=== PATIENT | female | born 1940 | race Two or more races ===

== ENCOUNTER 2018-06-15 16:30 | Inpatient (IN) | payer MEDICARE ==
[~2018-06-15] VITALS: Ht 157.5 cm; Wt 44.0 kg
[2018-06-15] VITALS: BP 120/59
[~2018-06-15 16:30] MED LIST: HYDR-3974 PO; METO50TA7 PO
--- NOTE | 2018-06-15 16:43 | NUR ---
patient cherry from home, due to ground level fall, lac at the back of the head, -KO, caregiver left PT for 2 hours and came back found PT on the floor. on 02 @ 2lpm via NC, connected to the monitor and pulse ox, kept comfortable, will continue to monitor accordingly.
[2018-06-15] MEDS ORDERED: ONDANSETRON HCL/PF 4 MG/2 ML VIAL ONE (16:57)
[2018-06-15] MEDS ORDERED: IV NS 0.9% 500 ML BAG IV ONE (17:00)
[2018-06-15] MEDS ORDERED: ONDANSETRON HCL/PF 4 MG/2 ML VIAL IVP ONE (17:00)
--- NOTE | 2018-06-15 17:06 | NUR ---
CALLED HOUSE SUP FOR BED JARROD
[2018-06-15 17:07] LABS: BASOPHILS % (AUTO) 0.1 % (0.0-2.0); EOSINOPHILS % (AUTO) 0.1 % (0.0-6.0); HEMATOCRIT 41 % (33-45); HEMOGLOBIN 13.6 g/dL (11.5-14.8); LYMPHOCYTES # (AUTO) 0.4 /CMM (0.8-4.8); LYMPHOCYTES % (AUTO) 2.9 % (20.0-44.0); MEAN CORPUSCULAR HGB CONC 33 g/dl (31.0-36.0); MEAN CORPUSCULAR VOLUME 93 fL (82-100); MONOCYTES # (AUTO) 0.5 /CMM (0.1-1.30); MONOCYTES % (AUTO) 3.4 % (2.0-12.0); NEUTROPHILS # (AUTO) 13.1 /CMM (1.8-8.9); NEUTROPHILS % (AUTO) 93.5 % (43.0-81.0); PLATELET COUNT (AUTO) 286 /CMM (150-450); RED BLOOD CELL COUNT(AUTO) 4.38 MIL/uL (4.0-5.2)
[2018-06-15 17:16] LABS: CALCIUM, SERUM 9.5 mg/dL (8.5-10.1); CARBON DIOXIDE 26 mmol/L (21-32); CHLORIDE 105 mmol/L (98-107); CREATININE 0.9 mg/dL (0.6-1.3); GLUCOSE 120 mg/dL (74-106); POTASSIUM 4.1 mmol/L (3.5-5.1); SODIUM SERUM 142 mmol/L (136-145); UREA NITROGEN, BLOOD 20 mg/dL (7-18)
[2018-06-15 17:22] LABS: ALANINE AMINOTRANSFERASE 22 U/L (12-78); ALBUMIN 3.3 g/dL (3.4-5.0); ALKALINE PHOSPHATASE 103 U/L (46-116); ASPARTATE AMINOTRANSFERASE 22 U/L (15-37); BILIRUBIN,DIRECT 0.1 mg/dL (0.0-0.2); BILIRUBIN,TOTAL 0.7 mg/dL (0.2-1.0); TOTAL PROTEIN, SERUM 6.6 g/dL (6.4-8.2)
--- NOTE | 2018-06-15 17:30 | NUR ---
patient wheeled to ct scan
--- NOTE | 2018-06-15 17:40 | NUR ---
patient came back from ct.
[2018-06-15 17:43] LABS: B-TYPE NATRIURETIC PEPTIDE 136 PG/ML (0-125)
--- NOTE | 2018-06-15 17:54 | NUR ---
PAGED DORINDA MCCARTHY
[2018-06-15] MEDS ORDERED: IV NS 0.9% 1,000 ML BAG IV ONE (18:00)
[2018-06-15] MEDS ORDERED: MULT1TAB73 PO (18:06)
--- NOTE | 2018-06-15 18:08 | NUR ---
urine collected and sent to lab.
--- NOTE | 2018-06-15 18:10 | NUR ---
JARROD BED 118-2
--- NOTE | 2018-06-15 18:16 | NUR ---
dannie MOLDER SWEEP at bedside for eval.
--- NOTE | 2018-06-15 18:21 | NUR ---
report given to Pamela CALVERT for jean.
[2018-06-15 18:24] LABS: APPEARANCE,URINE Clear (CLEAR); BILIRUBIN,URINE Negative (NEGATIVE); BLOOD, URINE Negative Ery/uL (NEGATIVE); COLOR,URINE Yellow (YELLOW); KETONES,URINE Trace (NEGATIVE); LEUKOCYTE ESTERASE ,URINE Negative (NEGATIVE); NITRITE, URINE Negative (NEGATIVE); PH,URINE 6.5 (5.0-8.0); PROTEIN,URINE 30 mg/dl (NEGATIVE); UGLUCOSE Negative (NEGATIVE); UROBILINOGEN,URINE 0.2 EU/dL (0.2)
[2018-06-15] MEDS ORDERED: AZITHROMYCIN 500 MG in IV D5W 250 ML IV ONE (18:30)
[2018-06-15] MEDS ORDERED: CEFTRIAXONE 1 G in IV D5W 50 ML IV ONE (18:30)
[2018-06-15 19:17] VITALS: BP 136/89
--- NOTE | 2018-06-15 19:20 | NUR ---
RN ADMITTING NOTES RECEIVED PT FROM ER VIA [facility], ACCOMPANIED BY CAREGIVER. PT IS A/OX3. ON 4L O2 VIA NC, NO SOB NOTED. DENIES PAIN AT THIS TIME. LFA G18 HEPLOCK PATENT, C/D/I. PHYSICAL ASSESSMENT AND VS TAKEN. PLACED ON TELE, SR ON TELE. ORIENTED TO ROOM AND USE OF CALL LIGHT. SAFETY MEASURES AND FALL PRECAUTION IN PLACED. CALL LIGHT WITHIN REACH. WILL CONT TO MONITOR
--- NOTE | 2018-06-15 19:26 | NUR ---
wheeled patient to JARROD in no apparent distress noted.
[2018-06-15] MEDS ORDERED: ONDANSETRON HCL/PF 4 MG/2 ML VIAL IVP PRN (19:30)
[2018-06-15] MEDS ORDERED: FEE PK DOSING 1 MIN EA MC ONE (19:36)
[2018-06-15 19:54] LABS: BACTERIA,URINE Rare /HPF (None Seen); RBC,URINE 0-2 /HPF (0-2); SQUAMOUS EPITHELIAL CELL,UR Few /HPF (None Seen); WBC,URINE 0-2 /HPF (0-3)
[2018-06-15 19:55] LABS: MUCUS,URINE Few /LPF (None Seen); URINE AMORPHOUS URATE Few /HPF (None Seen)
[2018-06-15 20:00] VITALS: BP 136/89
[2018-06-15] MEDS: VANCOMYCIN 0.75 GM in IV D5W 250 ML IV SCH (20:12)
[2018-06-15] MEDS: PIPERACILLIN /TAZOBACTAM 2.25 G in IV D5W 50 ML IV SCH (21:53)
[2018-06-16] VITALS: BP 120/59
--- NOTE | 2018-06-16 01:15 | NUR ---
RN NOTES RECEIVED CALL FROM LAB. PT'S LACTIC ACID=2.1. PAGED COMMERCIAL LINES MANAGER MARYJO PORTER, AWAITING FOR CALL BACK
--- NOTE | 2018-06-16 01:56 | NUR ---
RN NOTES RECEIVED CALL BACK FROM CADEN MALDONADO RE: LACTIC ACID OF 2.1, NO NEW ORDERS MADE BY HEALTH DIRECTOR
[2018-06-16] MEDS: PIPERACILLIN /TAZOBACTAM 2.25 G in IV D5W 50 ML IV SCH ×4 (02:33→21:20)
[2018-06-16 04:00] VITALS: BP 105/96
[2018-06-16 06:43] LABS: ALANINE AMINOTRANSFERASE 18 U/L (12-78); ALBUMIN 2.8 g/dL (3.4-5.0); ALKALINE PHOSPHATASE 79 U/L (46-116); ASPARTATE AMINOTRANSFERASE 24 U/L (15-37); BILIRUBIN,TOTAL 1.2 mg/dL (0.2-1.0); CARBON DIOXIDE 29 mmol/L (21-32); CHLORIDE 102 mmol/L (98-107); CREATININE 0.8 mg/dL (0.6-1.3); GLUCOSE 106 mg/dL (74-106); PHOSPHORUS 4.3 mg/dL (2.5-4.9); POTASSIUM 4.4 mmol/L (3.5-5.1); SODIUM SERUM 138 mmol/L (136-145); UREA NITROGEN, BLOOD 21 mg/dL (7-18)
[2018-06-16 06:45] LABS: BASOPHILS % (AUTO) 0.3 % (0.0-2.0); EOSINOPHILS % (AUTO) 0.1 % (0.0-6.0); HEMATOCRIT 36 % (33-45); HEMOGLOBIN 12.2 g/dL (11.5-14.8); LYMPHOCYTES # (AUTO) 0.5 /CMM (0.8-4.8); LYMPHOCYTES % (AUTO) 5.3 % (20.0-44.0); MEAN CORPUSCULAR HGB CONC 34 g/dl (31.0-36.0); MEAN CORPUSCULAR VOLUME 93 fL (82-100); MONOCYTES # (AUTO) 0.4 /CMM (0.1-1.30); MONOCYTES % (AUTO) 3.7 % (2.0-12.0); NEUTROPHILS # (AUTO) 8.9 /CMM (1.8-8.9); NEUTROPHILS % (AUTO) 90.6 % (43.0-81.0); PLATELET COUNT (AUTO) 274 /CMM (150-450); RED BLOOD CELL COUNT(AUTO) 3.92 MIL/uL (4.0-5.2); WHITE BLOOD COUNT (AUTO) 9.9 K/uL (4.3-11.0)
[2018-06-16 06:51] LABS: CHOLESTEROL 154 mg/dL (<200); HDL CHOLESTEROL 68 mg/dL (40-60); LDL 79 mg/dL (0-99); THYROID STIMULATING HORMONE 0.586 uIU/mL (0.358-3.74); TRIGLYCERIDES 36 mg/dL (30-150)
--- NOTE | 2018-06-16 06:54 | NUR ---
WOUND CARE CONSULT PATIENT SEEN AND SKIN INTEGRITY ASSESSMENT DONE. PLEASE SEE ICE RINK ATTENDANT ASSESSMENT IN PCS FOR TODAY. PATIENT PRESENTS WITH HEAD LACERATIONS X 2, MULTIPLE AREAS OF DRY ABRASIONS TO HER BODY, ALL POA. PATIENT IS S/P FALL. PATIENT ABLE TO MOVE ALL EXTREMITIES, AND HAS JOSSIE OF 15. TREATMENT RECOMMENDATIONS MADE AND DISCUSSED WITH NURSING AT THE BEDSIDE. RECOMMEND SURGICAL FOLLOW UP FOR HEAD LACERATIONS. PLASTIC TEAM TO BE NOTIFIED OF THE CONSULT. PATIENT ON COMFORT GEL PRESSURE REDISTRIBUTION MATTRESS. RECOMMEND Z GUARD FOR SKIN/MOISTURE MANAGEMENT. PATIENT IS INCONTINENT. RECOMMEND IT SOFTWARE ENGINEER CONSULT, PATIENT CAME FROM HOME. Addendum: 06/16/18 at 0705 by TRAY MEDEIROS WNDNU Amended: Links added.
[2018-06-16] MEDS ORDERED: Z GUARD REMEDY 2 OZ OINT TP PRN (07:00)
--- NOTE | 2018-06-16 07:21 | NUR ---
RN NOTES PT IN STABLE CONDITION. NO ACUTE CHANGES THROUGHOUT SHIFT. ALL NEEDS ANTICIPATED. SAFETY MEASURES OBSERVED AT ALL TIMES. ENDORSED TO AM SHIFT RN FOR BOUBACAR
--- NOTE | 2018-06-16 07:25 | NUR ---
EPIDEMIOLOGY INVESTIGATOR OPENING NOTE RECEIVED REPORT FROM PM NURSE,PATIENT AXOX4 WITH PERIODS OF CONFUSION AND ATAXIA.ON TELE MONITOR SR HR 99.NO SOB NO DISTRESS NOTED.ON O2 VIA NASAL CANULA 3L.IV INTACT AND PATENT.BED IS LOCKED AND IN LOW POSITION.CALL LIGHT IN REACH.BED ALARM ON .SRX3.WILL CONTINUE TO MONITOR.
[2018-06-16 08:00] VITALS: BP 125/50
[2018-06-16] MEDS: MULTIVITAMINS,THERAGRAN 1 UDTAB TABLET PO SCH (08:18)
[2018-06-16] MEDS: PANTOPRAZOLE 40 MG VIAL IV SCH (08:18)
[2018-06-16] MEDS: VANCOMYCIN 0.75 GM in IV D5W 250 ML IV SCH ×2 (09:11→20:17)
[2018-06-16] MEDS: Z GUARD REMEDY 2 OZ OINT TP SCH (09:11)
--- NOTE | 2018-06-16 11:23 | NUR ---
AJIT called pt's caregiver Mounika to get some more information regarding pt's care at home. Per Mounika, pt. lives alone and receives caregiving services through [facility] agency 3 to 4 hours, 7 days a week. Mounika informed AJIT that pt. makes decisions for herself and handles her own finances. Pt. has a brother Ming Salinas who resides in [place]. Pt. has no family in [place]. Per Mounika, they have been providing care to the pt. for 8months approximately. Mounika states that pt's health has been declining since the last month. Mounika informed AJIT that they can provide 24/7 care if needed. AJIT informed her that pt's discharge plan is unknown at this time and doctor might recommend SNF placement if deemed appropriate.
--- NOTE | 2018-06-16 12:00 | NUR ---
JARROD RN NOTE SEEN BY CONSTRUCTION FOREMAN DORINDA,UPDATED ABOUT PATIENT CONDITION WITH LABS,ELEVATED LACTIC ACID AND PROCALCITONIN.GOT NEW ORDERS.CONSTRUCTION FOREMAN SPOKE TO PATIENT AND ANSWERED ALL QUESTIONS.NOTIFIED THAT PATIENT HAS MILD FACIAL DROOPING ON R SIDE OF FACE. PER CONSTRUCTION FOREMAN ITS BASELINE,PATIENT DENIED ANY H/O STROKE.AXOX4.WILL CONTINUE TO MONITOR.
[2018-06-16] MEDS: IV NS 0.9% 1,000 ML IV PRN (12:17)
--- NOTE | 2018-06-16 15:31 | NUR ---
MS RN NOTE SEEN BY FROM WOUND CARE.HE SAID HE WILL PLACE NEW ORDERS.
[2018-06-16 16:00] VITALS: BP 139/65
--- NOTE | 2018-06-16 16:00 | NUR ---
MS RN NOTE PUBLIC AID ELIGIBILITY ASSISTANT MADE AWARE ABOUT OFFICE SERVICES CLERK WANT TO TALK TO THEM.NANDO MADE AWARE.
[2018-06-16] MEDS: LACTOBACILLUS RHAMNOSUS GG 1 EACH CAP.SPRINK PO SCH (17:32)
--- NOTE | 2018-06-16 19:35 | NUR ---
MS1 RN NOTES RECEIVED ON BED A/O X1-2,CONFUSED,AGITATED,LOOKING FOR HER COFFEE MACHINE IN THE ROOM,TRYING TO KICK THE SITTER,GETTING OUT OF BED,YELLING.IVF NS AT 100ML/HR RATE IN PROGRESS ON LFA VIA IV PUMP.WILL CONTINUE TO MONITOR STATUS.
--- NOTE | 2018-06-16 19:40 | NUR ---
MS RN NOTE ENDORSED TO PM NURSE FOR BOUBACAR.PATIENT IN STABLE CONDITION.
--- NOTE | 2018-06-16 19:48 | NUR ---
MS1 RN NOTES STOCK OR DELIVERY CLERK DISTRIBUTING CLERK WAS PAGE THIS TIME
--- NOTE | 2018-06-16 19:55 | NUR ---
MS1 RN NOTES SHAUNNA PORTER ACNP CALLED BACK,RELAY PATIENT BEHAVIOR WITH ORDERS NOTED AND CARRIED OUT.
[2018-06-16 20:00] VITALS: BP 167/87
--- NOTE | 2018-06-16 20:16 | NUR ---
MS1 RN NOTES AWAKE,SCREAMING,GETTING OUT OF BED.HALDOL 5MG IM GIVEN ORDERED.
[2018-06-16] MEDS ORDERED: HALOPERIDOL DECANOATE IM 100 MG/ML AMPUL IM ONE (20:30)
[2018-06-16] MEDS ORDERED: HALOPERIDOL LACTATE INJ 5 MG/ML VIAL IM ONE (21:00)
--- NOTE | 2018-06-16 21:30 | NUR ---
MS1 RN NOTES IV SALINE LOCK ACCIDENTALLY PULLED OUT.NEW SALINE LOCK PLACE ON RIGHT FOREARM #22 BY PAOLA CALVERT.
[2018-06-17] MEDS: PIPERACILLIN /TAZOBACTAM 2.25 G in IV D5W 50 ML IV SCH ×4 (02:51→20:20)
--- NOTE | 2018-06-17 03:00 | NUR ---
MS1 RN NOTES AWAKE,RESTLESS ON BED,O2 IN USED,SITTER AT BEDSIDE.
--- NOTE | 2018-06-17 06:29 | NUR ---
MS1 RN NOTES SLEEPING THIS TIME.NEW SALINE LOCK PLACE ON RIGHT FORE ARM #22.SITTER AT BEDSIDE.HAD 5X BOWEL MOVEMENT SIMULTANEOUS WITH PEE IN SMALL AMOUNT.SITTER AT BEDSIDE FOR SAFETY.BED ON LOWEST POSITION AND LOCKED.CALL LIGHT IN REACH,NEEDS ATTENDED.
[2018-06-17 06:58] LABS: BASOPHILS % (AUTO) 0.1 % (0.0-2.0); EOSINOPHILS % (AUTO) 0.2 % (0.0-6.0); HEMATOCRIT 34 % (33-45); HEMOGLOBIN 11.3 g/dL (11.5-14.8); LYMPHOCYTES # (AUTO) 0.4 /CMM (0.8-4.8); MEAN CORPUSCULAR HGB CONC 34 g/dl (31.0-36.0); MEAN CORPUSCULAR VOLUME 93 fL (82-100); MONOCYTES # (AUTO) 0.6 /CMM (0.1-1.30); MONOCYTES % (AUTO) 5.1 % (2.0-12.0); NEUTROPHILS # (AUTO) 10.6 /CMM (1.8-8.9); NEUTROPHILS % (AUTO) 91.6 % (43.0-81.0); PLATELET COUNT (AUTO) 261 /CMM (150-450); RED BLOOD CELL COUNT(AUTO) 3.62 MIL/uL (4.0-5.2); WHITE BLOOD COUNT (AUTO) 11.6 K/uL (4.3-11.0)
[2018-06-17 07:17] LABS: ALANINE AMINOTRANSFERASE 27 U/L (12-78); ALBUMIN 2.8 g/dL (3.4-5.0); ALKALINE PHOSPHATASE 80 U/L (46-116); ASPARTATE AMINOTRANSFERASE 51 U/L (15-37); BILIRUBIN,TOTAL 0.7 mg/dL (0.2-1.0); CALCIUM, SERUM 8.7 mg/dL (8.5-10.1); CARBON DIOXIDE 27 mmol/L (21-32); CHLORIDE 103 mmol/L (98-107); CREATININE 0.7 mg/dL (0.6-1.3); GLUCOSE 115 mg/dL (74-106); MAGNESIUM 1.7 mg/dL (1.8-2.4); PHOSPHORUS 3.2 mg/dL (2.5-4.9); POTASSIUM 3.2 mmol/L (3.5-5.1); SODIUM SERUM 139 mmol/L (136-145); TOTAL PROTEIN, SERUM 6.1 g/dL (6.4-8.2); UREA NITROGEN, BLOOD 14 mg/dL (7-18)
[2018-06-17] MEDS: VANCOMYCIN 0.75 GM in IV D5W 250 ML IV SCH (07:50)
[2018-06-17 08:19] VITALS: BP 154/81
[2018-06-17] MEDS: MULTIVITAMINS,THERAGRAN 1 UDTAB TABLET PO SCH (08:40)
[2018-06-17] MEDS: LACTOBACILLUS RHAMNOSUS GG 1 EACH CAP.SPRINK PO SCH ×2 (08:40→17:59)
[2018-06-17] MEDS: PANTOPRAZOLE 40 MG VIAL IV SCH (08:40)
[2018-06-17] MEDS: Z GUARD REMEDY 2 OZ OINT TP SCH (09:11)
[2018-06-17 09:19] VITALS: BP 151/69
[2018-06-17 09:21] VITALS: BP 148/83
[2018-06-17 09:22] VITALS: BP 145/75
[2018-06-17] MEDS: Magnesium 1GM/D5W 100ML PREMIX 100 ML IV SCH ×2 (10:20→11:24)
[2018-06-17] MEDS: POTASSIUM CHLORIDE 20 MEQ TAB.PRT.SR PO SCH ×2 (10:20→11:24)
[2018-06-17] MEDS: PANTOPRAZOLE 40 MG TABLET.DR PO SCH (10:22)
[2018-06-17] MEDS: METOPROLOL SUCCINATE 50 MG TAB.SR.24H PO SCH (10:23)
[2018-06-17] MEDS: IV NS 0.9% 1,000 ML IV PRN (15:21)
[2018-06-17 16:00] VITALS: BP 165/74
[2018-06-17] MEDS: ENSURE ENLIVE CHOC 237 ML CAN PO SCH (18:00)
[2018-06-17] MEDS: VANCOMYCIN 1 GM in IV D5W 250 ML IV SCH (18:00)
--- NOTE | 2018-06-17 19:20 | NUR ---
MS RN NOTE RECEIVED PT IN STABLE CONDITION A&O X1-2. PT IS CURRENTLY IN BED, AGITATED. SITTER AT BEDSIDE FOR FALL PRECAUTIONS. NO SIGNS OF SOB OR DISTRESS NO INDICATION OF PAIN. ALL CURRENT NEEDS ATTENDED TO. BED LOW, LOCKED, UPPER RAILS UP, AND CALL LIGHT WITHIN REACH. WILL CONT. TO MONITOR.
--- NOTE | 2018-06-17 19:30 | NUR ---
MS RN NOTE RECEIVED PT IN STABLE CONDITION A&O X3 ABLE TO MAKE NEEDS KNOWN. CURRENTLY SITTING AT BEDSIDE FINISHING HER DINNER. SITTER AT BEDSIDE. NO SIGNS OF SOB OR DISTRESS, NO C/O PAIN, OR N/V. ALL CURRENT NEEDS ATTENDED TO. BED LOW, LOCKED, UPPER RAILS UP, AND CALL LIGHT WITHIN REACH. WILL CONT. TO MONITOR.
--- NOTE | 2018-06-17 20:13 | NUR ---
Endorsement to [employer], radio news writer did not have magnesium or potassium replacement. Wily Triana RN
--- NOTE | 2018-06-17 22:30 | NUR ---
MS RN NOTE PT NOTED TO BE MORE AGITATED AND COMBATIVE. GERMAN FINISH MILL OPERATOR NOTIFIED WITH NEW ONE TIME ORDER OF ATIVAN 0.25MG IV GIVEN. WILL WAIT FOR PHARM TO VERIFY.
[2018-06-17] MEDS ORDERED: LORAZEPAM INJ 2 MG/ML VIAL IV ONE (23:00)
--- NOTE | 2018-06-17 23:02 | NUR ---
MS RN NOTE ATIVAN 0.25 MG IV GIVEN FOR PT AGITATION AND ANXIETY. WILL CONT. TO MONITOR.
[2018-06-18] MEDS: PIPERACILLIN /TAZOBACTAM 2.25 G in IV D5W 50 ML IV SCH ×3 (03:12→14:55)
[2018-06-18] MEDS: VANCOMYCIN 1 GM in IV D5W 250 ML IV SCH ×2 (05:00→17:10)
--- NOTE | 2018-06-18 06:30 | NUR ---
MS RN NOTE PT IN STABLE CONDITION A&O X1-2 ABLE TO MAKE NEEDS KNOWN. CURRENTLY IN BED RESTING. SITTER AT BEDSIDE. NO SIGNS OF SOB OR DISTRESS, NO INDICATION OF PAIN, OR N/V. ALL CURRENT NEEDS ATTENDED TO. BED LOW, LOCKED, UPPER RAILS UP, AND CALL LIGHT WITHIN REACH. WILL CONT. TO MONITOR AND ENDORSE TO NEXT SHIFT FOR BOUBACAR.
[2018-06-18 07:16] LABS: BASOPHILS # (AUTO) 0.1 /CMM (0.0-0.2); BASOPHILS % (AUTO) 0.4 % (0.0-2.0); HEMATOCRIT 36 % (33-45); HEMOGLOBIN 11.9 g/dL (11.5-14.8); LYMPHOCYTES # (AUTO) 0.8 /CMM (0.8-4.8); LYMPHOCYTES % (AUTO) 6.5 % (20.0-44.0); MEAN CORPUSCULAR HGB CONC 33 g/dl (31.0-36.0); MEAN CORPUSCULAR VOLUME 91 fL (82-100); MONOCYTES # (AUTO) 0.8 /CMM (0.1-1.30); MONOCYTES % (AUTO) 6.6 % (2.0-12.0); NEUTROPHILS # (AUTO) 10.3 /CMM (1.8-8.9); NEUTROPHILS % (AUTO) 85.5 % (43.0-81.0); PLATELET COUNT (AUTO) 292 /CMM (150-450)
[2018-06-18 07:46] LABS: ALANINE AMINOTRANSFERASE 32 U/L (12-78); ALBUMIN 2.7 g/dL (3.4-5.0); ALKALINE PHOSPHATASE 81 U/L (46-116); ASPARTATE AMINOTRANSFERASE 55 U/L (15-37); CALCIUM, SERUM 8.5 mg/dL (8.5-10.1); CARBON DIOXIDE 24 mmol/L (21-32); CHLORIDE 104 mmol/L (98-107); CREATININE 0.7 mg/dL (0.6-1.3); GLUCOSE 115 mg/dL (74-106); PHOSPHORUS 3.2 mg/dL (2.5-4.9); POTASSIUM 3.3 mmol/L (3.5-5.1); SODIUM SERUM 139 mmol/L (136-145); TOTAL PROTEIN, SERUM 6.2 g/dL (6.4-8.2); UREA NITROGEN, BLOOD 7 mg/dL (7-18)
--- NOTE | 2018-06-18 07:46 | NUR ---
M/S RN OPENING NOTES RECEIVED PATIENT ON BED A/O X 1 WITH CONFUSION. RESPIRATION EVEN AND NON LABORED WITH NO ACUTE RESPIRATORY DISTRESS, ON ROOM AIR SATING 97%. ABDOMEN SOFT AND NON DISTENDED WITH ACTIVE BOWEL SOUNDS. NO S/SX OF PAIN AND DISCOMFORT. SKIN WARM TO TOUCH AND DRY. IV SITE AT LFA, PATENT IN FLUSHING RUNNING NS AT 100 ML/HR. PATIENT WITH SITTER DUE TO HISTORY OF GROUND LEVEL FALL AND BEHAVIOR OF GETTING OUT OF THE BED. WILL CONTINUE TO EVALUATE CARE.
[2018-06-18 08:00] VITALS: BP 149/82
[2018-06-18] MEDS: PANTOPRAZOLE 40 MG TABLET.DR PO SCH (08:51)
[2018-06-18] MEDS: LACTOBACILLUS RHAMNOSUS GG 1 EACH CAP.SPRINK PO SCH ×2 (08:51→16:37)
[2018-06-18] MEDS: POTASSIUM CHLORIDE 20 MEQ TAB.PRT.SR PO SCH ×3 (08:51→10:59)
[2018-06-18] MEDS: MULTIVITAMINS,THERAGRAN 1 UDTAB TABLET PO SCH (08:51)
[2018-06-18] MEDS: METOPROLOL SUCCINATE 50 MG TAB.SR.24H PO SCH (08:51)
[2018-06-18] MEDS: ENSURE ENLIVE CHOC 237 ML CAN PO SCH ×2 (08:55→17:46)
[2018-06-18] MEDS: Z GUARD REMEDY 2 OZ OINT TP SCH (10:04)
[2018-06-18] MEDS ORDERED: LACT-54 PO (14:37)
[2018-06-18] MEDS ORDERED: LACT1CAP72 PO (14:37)
[2018-06-18] MEDS ORDERED: PIPE2.257 IV (14:37)
[2018-06-18 16:00] VITALS: BP 152/85
--- NOTE | 2018-06-18 19:27 | NUR ---
M/S RN CLOSING NOTES PATIENT A/O X 2-3 AND ABLE TO MAKE NEEDS KNOWN. RESPIRATION EVEN AND NON LABORED WITH NO ACUTE RESPIRATORY DISTRESS, ABLE TO TOLERATE ROOM AIR WITH 95%. ABDOMEN SOFT AND NON DISTENDED WITH ACTIVE BOWEL SOUNDS. SKIN WARM TO TOUCH AN DRY. DENIES PAIN AND DISCOMFORT. IV LINE AT RIGHT FA PATENT IN FLUSHING. PATIENT WAITING FOR AMBULANCE FOR OCEAN FORWARDER TO [facility]. TALKED TO ENRIKE VINES FOR REPORT. EXIT CARE GIVEN TO PATIENT WITH VERBAL UNDERSTANDING. CALLED MAURICIO (BROTHER) TO INFORM PATIENT DISCHARGE. ALL CONCERNS ADDRESSED. ENDORSED PATIENT CARE TO NEXT SHIFT.
--- NOTE | 2018-06-18 19:30 | NUR ---
MS/RN RECEIVE PATIENT AWAKE, ALERT, ORIENTED X 3, COMFORTABLE, NO C/O PAIN, NO DISTRESS NOTED, PATIENT IS AWARE THAT SHE IS GOING TO BE DISCHARGED TONIGHT TO RESIDENTIAL ([facility]), WAITING FOR THE AMBULANCE.
[2018-06-18 20:00] VITALS: BP 144/83
--- NOTE | 2018-06-18 20:00 | NUR ---
MS/RN AMBULANCE IS HERE, REPORT GIVEN TO EMT, IVF STOPPED, IV NOT REMOVED PATIENT WILL BE ON ANTIBIOTIC IN THE LONG TERM.
--- NOTE | 2018-06-18 20:30 | NUR ---
MS/RN PATIENT LEFT THE FLOOR IN STABLE CONDITION, BELONGINGS SENT WITH THE PATIENT.
== END 2018-06-18 20:30 | DRG 871 ==
LOC: ER 16:34 → TELE-TD 18:29 → MEDSG1 06-16 10:40 → TELE1 06-17 03:13 → MED 06-17 18:36
PROVIDERS: ADMIT Registered Nurse; ATTEND Nurse Practitioner Acute Care
DX: A41.9 Sepsis, unspecified organism (principal); J69.0 Pneumonitis due to inhalation of food and vomit; E87.2 Acidosis; E44.1 Mild protein-calorie malnutrition; Z68.1 Body mass index [BMI] 19.9 or less, adult; N17.9 Acute kidney failure, unspecified; E86.0 Dehydration; S01.01XA Laceration without foreign body of scalp, initial encounter; W18.30XA Fall on same level, unspecified, initial encounter; J06.9 Acute upper respiratory infection, unspecified; R73.9 Hyperglycemia, unspecified; R26.0 Ataxic gait; I10 Essential (primary) hypertension; E88.09 Other disorders of plasma-protein metabolism, not elsewhere classified; F03.90 Unspecified dementia, unspecified severity, without behavioral disturbance, psychotic disturbance, mood disturbance, and anxiety; E87.6 Hypokalemia; E83.42 Hypomagnesemia; R58 Hemorrhage, not elsewhere classified; Z87.891 Personal history of nicotine dependence; X58.XXXA Exposure to other specified factors, initial encounter; Y93.9 Activity, unspecified; Y92.009 Unspecified place in unspecified non-institutional (private) residence as the place of occurrence of the external cause; R55 Syncope and collapse; S40.022A Contusion of left upper arm, initial encounter; S40.021A Contusion of right upper arm, initial encounter
CPT/HCPCS: 36415; 70450-TC; 71045-TC; 72125-TC; 80048-TC; 80053-TC; 80061-TC; 80076-TC; 80202-TC; 81000-TC; 83605-TC; 83735-TC; 83880; 84100-TC; 84443-TC; 84484-TC; 85025-TC; 85730-TC; 87040-TC; 87081-TC; 87086-TC; 87806; 92526; 92611-TC; 93307-TC; 93880-TC; 97110-TC; 97530-TC; C9113; G0378; J0456; J0696; J1630; J1631; J2060; J2405; J2543; J3370; J3475; J7030; J7040; J7050; J7060

== ENCOUNTER 2018-07-06 08:38 | Emergency (ER) | payer MEDICARE ==
[~2018-07-06] VITALS: Ht 157.5 cm; Wt 44.0 kg
[2018-07-06 08:38] VITALS: BP 138/82
[~2018-07-06 08:38] MED LIST changes: -HYDR-3974 PO; +LACT-54 PO; +LACT1CAP72 PO; +MULT1TAB73 PO; +PIPE2.257 IV
--- NOTE | 2018-07-06 09:20 | NUR ---
PT TO RADIOLOGY FOR HEAD CT SCAN VIA [facility].
--- NOTE | 2018-07-06 09:44 | NUR ---
[facility] ETA 1030. TRIP# [id number]. PRIMARY NURSE AWARE.
--- NOTE | 2018-07-06 09:56 | NUR ---
[facility] CALLED, ETA 1026
--- NOTE | 2018-07-06 09:58 | NUR ---
MIGUELANGEL CANCELLED, TRIP NUMBER [id number]. PRIMARY NURSE AWARE.
--- NOTE | 2018-07-06 10:31 | NUR ---
D/C BACK TO [facility] IN STABLE CONDITION.
== END 2018-07-06 10:33 | disposition home or self-care (01) ==
LOC: ER 08:40
DX: S09.8XXA Other specified injuries of head, initial encounter (principal); R26.0 Ataxic gait; F03.90 Unspecified dementia, unspecified severity, without behavioral disturbance, psychotic disturbance, mood disturbance, and anxiety; I10 Essential (primary) hypertension; W06.XXXA Fall from bed, initial encounter; Y93.89 Activity, other specified; Y92.89 Other specified places as the place of occurrence of the external cause; Y99.8 Other external cause status
CPT/HCPCS: 70450-TC

== ENCOUNTER 2019-04-17 15:13 | Emergency (ER) | payer MEDICARE ==
[~2019-04-17] VITALS: Ht 157.5 cm; Wt 44.0 kg
--- NOTE | 2019-04-17 15:22 | NUR ---
, from board and care, c/o nausea vomiting since 3pm. PT DRY-HEAVING AT THE MOMENT AND APPEARS VERY UNCOMFORTABLE. SKIN WARM, DRY, INTACT. AOX3, TACHYCARDIC, RR EVEN AND UNLABORED. NO ACUTE DISTRESS NOTED. MADE COMFORTABLE AND READY FOR EVAL.
[2019-04-17] MEDS ORDERED: IV NS 0.9% 1,000 ML BAG IV ONE (15:30)
[2019-04-17] MEDS ORDERED: ONDANSETRON HCL/PF 4 MG/2 ML VIAL IVP ONE (15:30)
[2019-04-17] MEDS ORDERED: ONDANSETRON HCL/PF 4 MG/2 ML VIAL ONE (15:34)
--- NOTE | 2019-04-17 15:35 | NUR ---
IV ACCESS OBTAINED, BLOOD DRAWN, MEDS GIVEN, IVF INFUSING. PT JOANNE WELL.
[2019-04-17 15:39] LABS: BASOPHILS # (AUTO) 0.1 /CMM (0.0-0.2); BASOPHILS % (AUTO) 0.6 % (0.0-2.0); EOSINOPHILS % (AUTO) 0.8 % (0.0-6.0); HEMATOCRIT 49 % (33-45); HEMOGLOBIN 15.7 g/dL (11.5-14.8); LYMPHOCYTES # (AUTO) 1.6 /CMM (0.8-4.8); LYMPHOCYTES % (AUTO) 15.6 % (20.0-44.0); MEAN CORPUSCULAR HGB CONC 32 g/dl (31.0-36.0); MEAN CORPUSCULAR VOLUME 93 fL (82-100); MONOCYTES # (AUTO) 0.3 /CMM (0.1-1.30); MONOCYTES % (AUTO) 2.9 % (2.0-12.0); NEUTROPHILS # (AUTO) 8.4 /CMM (1.8-8.9); NEUTROPHILS % (AUTO) 80.1 % (43.0-81.0); PLATELET COUNT (AUTO) 467 /CMM (150-450); RED BLOOD CELL COUNT(AUTO) 5.24 MIL/uL (4.0-5.2); WHITE BLOOD COUNT (AUTO) 10.4 K/uL (4.3-11.0)
--- NOTE | 2019-04-17 15:39 | NUR ---
CAREGIVERS AT BEDSIDE
--- NOTE | 2019-04-17 15:41 | NUR ---
PT TAKEN TO RADIOLOGY VIA [facility]
[2019-04-17] MEDS ORDERED: AMLO5TAB9 PO (15:48)
--- NOTE | 2019-04-17 15:52 | NUR ---
PT BACK FROM CT
[2019-04-17 16:05] LABS: CALCIUM, SERUM 9.7 mg/dL (8.5-10.1); CREATININE 0.8 mg/dL (0.6-1.3); POTASSIUM 3.9 mmol/L (3.5-5.1)
--- NOTE | 2019-04-17 16:07 | NUR ---
URINE COLLECTED VIA STRAIGHT CATH PER PROTOCOL AND SENT TO STAT LAB
--- NOTE | 2019-04-17 16:08 | NUR ---
MARTIN BLANK AT BEDSIDE FOR EKG
[2019-04-17 16:11] LABS: ALBUMIN 3.5 g/dL (3.4-5.0); BILIRUBIN,TOTAL 0.2 mg/dL (0.2-1.0); TOTAL PROTEIN, SERUM 7.5 g/dL (6.4-8.2)
[2019-04-17 16:25] LABS: APPEARANCE,URINE Slightly Cloudy (CLEAR); BILIRUBIN,URINE Negative (NEGATIVE); BLOOD, URINE Negative Ery/uL (NEGATIVE); COLOR,URINE Other (YELLOW); KETONES,URINE Negative (NEGATIVE); LEUKOCYTE ESTERASE ,URINE Small (NEGATIVE); NITRITE, URINE Negative (NEGATIVE); PH,URINE 5.5 (5.0-8.0); PROTEIN,URINE Negative (NEGATIVE); UGLUCOSE Negative (NEGATIVE); UROBILINOGEN,URINE 0.2 EU/dL (0.2)
[2019-04-17 16:38] LABS: BACTERIA,URINE 1+ /HPF (None Seen); RBC,URINE 0-2 /HPF (0-2); SQUAMOUS EPITHELIAL CELL,UR Few /HPF (None Seen)
[2019-04-17] MEDS ORDERED: CEFTRIAXONE 1 G in IV D5W 50 ML IV ONE (17:00)
[2019-04-17] MEDS ORDERED: CEFTRIAXONE 1GM BAG (ER ONLY) 50 ML IV ONE (17:00)
--- NOTE | 2019-04-17 17:55 | NUR ---
IV removed. Catheter intact and site benign. Pressure and 4x4 applied to site. No bleeding noted.Patient discharged to home in stable condition. Written and verbal after care instructions given. Patient verbalizes understanding of instruction.
[2019-04-17 18:38] VITALS: BP 124/86
== END 2019-04-17 18:00 | disposition home or self-care (01) ==
LOC: ER 15:15
DX: R42 Dizziness and giddiness (principal); N30.00 Acute cystitis without hematuria; E86.0 Dehydration; F10.10 Alcohol abuse, uncomplicated; R51 Headache; R00.0 Tachycardia, unspecified; I10 Essential (primary) hypertension; F03.90 Unspecified dementia, unspecified severity, without behavioral disturbance, psychotic disturbance, mood disturbance, and anxiety; Y90.0 Blood alcohol level of less than 20 mg/100 ml; Z90.710 Acquired absence of both cervix and uterus; Z79.899 Other long term (current) drug therapy
CPT/HCPCS: 36415; 70450; 71045; 80053; 80305; 80307; 81001; 83690; 84484; 85025; 87077; 87086; 87186; 93005; 96361; 96365; 96375; 99285; J0696; J2405; J7030; 81000-TC; G0480

== ENCOUNTER 2019-10-16 14:27 | Emergency (ER) | payer MEDICARE ==
[~2019-10-16] VITALS: Ht 162.6 cm; Wt 40.4 kg
[~2019-10-16 14:27] MED LIST changes: +AMLO5TAB9 PO; -LACT-54 PO; -LACT1CAP72 PO; -MULT1TAB73 PO; -PIPE2.257 IV
--- NOTE | 2019-10-16 14:27 | NUR ---
PT BIBRA FROM HOME C/O DIZZINESS AND VOMITING. PT IS AAOX3, NOT IN RESPIRATORY DISTRESS, HOOKED TO EMOTIONAL DISABILITIES TEACHER, KEPT RESTED AND COMFORTABLE. WILL CONTINUE TO MONITOR.
--- NOTE | 2019-10-16 14:42 | NUR ---
PT SEEN AND EXAMINED BY .
--- NOTE | 2019-10-16 14:50 | NUR ---
IV LINE ESTABLISHED BLOOD DRAWN AND SENT TO LAB.
[2019-10-16] MEDS ORDERED: MECLIZINE HCL 25 MG TABLET ONE (14:56)
[2019-10-16] MEDS ORDERED: METOCLOPRAMIDE HCL 10 MG/2 ML VIAL ONE (14:56)
[2019-10-16 14:59] LABS: BASOPHILS % (AUTO) 0.2 % (0.0-2.0); EOSINOPHILS % (AUTO) 0.1 % (0.0-6.0); HEMATOCRIT 50 % (33-45); HEMOGLOBIN 16.3 g/dL (11.5-14.8); LYMPHOCYTES # (AUTO) 0.7 /CMM (0.8-4.8); LYMPHOCYTES % (AUTO) 5.8 % (20.0-44.0); MEAN CORPUSCULAR HGB CONC 33 g/dl (31.0-36.0); MEAN CORPUSCULAR VOLUME 96 fL (82-100); MONOCYTES # (AUTO) 0.4 /CMM (0.1-1.30); MONOCYTES % (AUTO) 3.3 % (2.0-12.0); NEUTROPHILS # (AUTO) 11.4 /CMM (1.8-8.9); NEUTROPHILS % (AUTO) 90.6 % (43.0-81.0); PLATELET COUNT (AUTO) 340 /CMM (150-450); RED BLOOD CELL COUNT(AUTO) 5.17 MIL/uL (4.0-5.2); WHITE BLOOD COUNT (AUTO) 12.5 K/uL (4.3-11.0)
[2019-10-16] MEDS ORDERED: METOCLOPRAMIDE HCL 10 MG/2 ML VIAL IV ONE (15:00)
[2019-10-16] MEDS ORDERED: IV NS 0.9% 1,000 ML BAG IV ONE (15:00)
[2019-10-16] MEDS ORDERED: MECLIZINE HCL 12.5 MG TABLET PO ONE (15:00)
[2019-10-16 15:09] LABS: CALCIUM, SERUM 9.8 mg/dL (8.5-10.1); CARBON DIOXIDE 25 mmol/L (21-32); CHLORIDE 105 mmol/L (98-107); CREATININE 0.7 mg/dL (0.6-1.3); GLUCOSE 143 mg/dL (74-106); POTASSIUM 3.9 mmol/L (3.5-5.1); SODIUM SERUM 140 mmol/L (136-145); UREA NITROGEN, BLOOD 21 mg/dL (7-18)
[2019-10-16 15:15] LABS: ALANINE AMINOTRANSFERASE 16 U/L (12-78); ALBUMIN 4.2 g/dL (3.4-5.0); ALKALINE PHOSPHATASE 93 U/L (46-116); ASPARTATE AMINOTRANSFERASE 13 U/L (15-37); BILIRUBIN,DIRECT 0.2 mg/dL (0.0-0.2); BILIRUBIN,TOTAL 0.9 mg/dL (0.2-1.0); TOTAL PROTEIN, SERUM 8.2 g/dL (6.4-8.2)
[2019-10-16] MEDS ORDERED: GABA-532 PO (15:15)
[2019-10-16] MEDS ORDERED: ESCI5TAB PO (15:15)
--- NOTE | 2019-10-16 15:30 | NUR ---
URINE SPECIMEN COLLECTED AND SENT TO LAB.
--- NOTE | 2019-10-16 15:33 | NUR ---
PT IS WHEELED TO CT SCAN VIA [facility].
[2019-10-16 15:39] LABS: APPEARANCE,URINE Slightly Cloudy (CLEAR); BILIRUBIN,URINE Negative (NEGATIVE); BLOOD, URINE Trace-intact Ery/uL (NEGATIVE); KETONES,URINE 15 (NEGATIVE); LEUKOCYTE ESTERASE ,URINE Small (NEGATIVE); NITRITE, URINE Negative (NEGATIVE); PH,URINE 5.5 (5.0-8.0); PROTEIN,URINE 100 mg/dl (NEGATIVE); UGLUCOSE Negative (NEGATIVE); UROBILINOGEN,URINE 0.2 EU/dL (0.2)
[2019-10-16 15:43] LABS: COLOR,URINE DARK YELLOW (YELLOW)
[2019-10-16 15:54] LABS: BACTERIA,URINE Many /HPF (None Seen); SQUAMOUS EPITHELIAL CELL,UR Few /HPF (None Seen)
[2019-10-16] MEDS ORDERED: CEFTRIAXONE 1GM BAG (ER ONLY) 50 ML IV ONE (16:27)
[2019-10-16 16:41] VITALS: BP 132/72
--- NOTE | 2019-10-16 16:56 | NUR ---
IV removed. Catheter intact and site benign. Pressure and 4x4 applied to site. No bleeding noted. Patient discharged to home in stable condition. Written and verbal after care instructions given. Patient verbalizes understanding of instruction.
[2019-10-16] MEDS ORDERED: CEFTRIAXONE 1GM BAG (ER ONLY) 1 GM/50 ML PIGGYBACK IV ONE (17:00)
== END 2019-10-16 16:57 | disposition home or self-care (01) ==
LOC: ER 14:37
DX: N39.0 Urinary tract infection, site not specified (principal); R11.2 Nausea with vomiting, unspecified; I10 Essential (primary) hypertension; F03.90 Unspecified dementia, unspecified severity, without behavioral disturbance, psychotic disturbance, mood disturbance, and anxiety; Z79.899 Other long term (current) drug therapy
CPT/HCPCS: 36415; 70450; 80048; 80076; 81001; 84484; 85025; 85730; 87086; 93005; 96361; 96365; 96375; 99285; J0696; J2765; J7030 ×2; J8597; 81000-TC

== ENCOUNTER 2020-06-24 07:11 | Inpatient (IN) | payer MEDICARE ==
[~2020-06-24] VITALS: Ht 160 cm; Wt 44.5 kg
[~2020-06-24 07:11] MED LIST changes: +AMLO-212 PO; -AMLO5TAB9 PO; +ESCI5TAB PO; +GABA-532 PO
--- NOTE | 2020-06-24 07:20 | NUR ---
[facility] to ER, c/o headcahe and dizziness- neurocritical care physician called 911 neurocritical care physician's number - [phone]
[2020-06-24] MEDS ORDERED: MECLIZINE HCL 25 MG TABLET ONE (07:26)
[2020-06-24] MEDS ORDERED: MECLIZINE HCL 12.5 MG TABLET PO ONE (07:30)
--- NOTE | 2020-06-24 07:38 | NUR ---
RN OPENING NOTES RECEIEVED PATIENT IN BED. ALERT AND ORIENTED X4. PATIENT STABLE ON ROOM AIR. NO SIGNS OR SYMPTOMS OF DISTRESS NOTED. BREATHING IS REGULAR AND UNLABORED. ABLE TO MAKE COMMUNICATE NEEDS. SAFETY MEASURES IN PLACE, BED LOCKED IN LOWEST POSITION. SIDE RAILS UP X 2. CALL LIGHT IS WITHIN REACH. WILL CONTINUE TO MONITOR THROUGHOUT SHIFT.
--- NOTE | 2020-06-24 07:46 | NUR ---
wheeled patient to ct accompanied by elmo
[2020-06-24 07:52] LABS: BASOPHILS % (AUTO) 0.3 % (0.0-2.0); EOSINOPHILS % (AUTO) 3.1 % (0.0-6.0); HEMATOCRIT 48 % (33-45); HEMOGLOBIN 15.9 g/dL (11.5-14.8); LYMPHOCYTES # (AUTO) 0.9 /CMM (0.8-4.8); LYMPHOCYTES % (AUTO) 14.1 % (20.0-44.0); MEAN CORPUSCULAR HGB CONC 33 g/dl (31.0-36.0); MEAN CORPUSCULAR VOLUME 94 fL (82-100); MONOCYTES # (AUTO) 0.5 /CMM (0.1-1.30); MONOCYTES % (AUTO) 7.9 % (2.0-12.0); NEUTROPHILS # (AUTO) 4.8 /CMM (1.8-8.9); NEUTROPHILS % (AUTO) 74.6 % (43.0-81.0); PLATELET COUNT (AUTO) 293 /CMM (150-450); RED BLOOD CELL COUNT(AUTO) 5.14 MIL/uL (4.0-5.2); WHITE BLOOD COUNT (AUTO) 6.4 K/uL (4.3-11.0)
--- NOTE | 2020-06-24 07:56 | NUR ---
patient came back from ct
[2020-06-24 07:58] LABS: CALCIUM, SERUM 9.4 mg/dL (8.5-10.1); CARBON DIOXIDE 29 mmol/L (21-32); CHLORIDE 105 mmol/L (98-107); CREATININE 0.5 mg/dL (0.6-1.3); GLUCOSE 103 mg/dL (74-106); POTASSIUM 3.9 mmol/L (3.5-5.1); SODIUM SERUM 142 mmol/L (136-145); UREA NITROGEN, BLOOD 12 mg/dL (7-18)
--- NOTE | 2020-06-24 08:40 | NUR ---
MOVE SHEET SUBMITTED AND CALLED MS BED.
--- NOTE | 2020-06-24 08:49 | NUR ---
[facility] CALLED CARTON INSPECTOR PAGED.
[2020-06-24] MEDS ORDERED: ZINC50TA65 PO (08:57)
[2020-06-24] MEDS ORDERED: MULT-24 PO (08:57)
[2020-06-24] MEDS ORDERED: ASCO-495 PO (08:57)
[2020-06-24] MEDS ORDERED: LOSA50TA39 PO (08:57)
--- NOTE | 2020-06-24 09:12 | NUR ---
LAB CALLED. NEGATIVE COVID RESULT.
--- NOTE | 2020-06-24 09:45 | NUR ---
bed assigned= 307-2
--- NOTE | 2020-06-24 10:00 | NUR ---
MS ROD WELDER NOTES PATIENT ADMITTED FROM EMERGENCY ROOM REPORT GIVEN BY GENE CALVERT . PATIENT ALERT ORIENTED X 3. NO ACUTE DISTRESS NOTED. BREATHING UNLABORED. NO SOB NOTED. IV ACCESS PATENT AND INTACT, NO REDNESS, NO SWELLING NOTED. ORIENTED TO TO THE ROOM. SHOW HOW TO USE CALL LIGHT, PLACED WITHIN REACH. NEEDS ATTENDED AND ANTICIPATED. SAFETY MEASURES IN PLACE. WILL CONTINUE TO MONITOR ACCORDINGLY
--- NOTE | 2020-06-24 10:04 | NUR ---
wheeled patient via gurney accompanied by RN and emt in no distress. RN assigned at bedside to continue care.
--- NOTE | 2020-06-24 11:15 | NUR ---
MS RN NOTES PATIENT SEEN AND EVALUATED BY DR NANETTE RASCON WITH NEW ORDERS MADE, NOTED AND CARRIED OUT.
[2020-06-24] MEDS ORDERED: HYDROCODONE/APAP 5/325MG TABLET PO PRN (11:30)
[2020-06-24] MEDS ORDERED: Z GUARD REMEDY 2 OZ OINT TP PRN (11:30)
[2020-06-24] MEDS ORDERED: MAGNESIUM HYDROXIDE 30 ML UDC PO PRN (11:30)
[2020-06-24] MEDS ORDERED: MAG HYDROX/AL HYDROX/SIMETH 30 ML UDC PO PRN (11:30)
[2020-06-24] MEDS ORDERED: ONDANSETRON HCL/PF 4 MG/2 ML VIAL IVP PRN (11:30)
[2020-06-24] MEDS ORDERED: ACETAMINOPHEN 325 MG TABLET PO PRN (11:30)
[2020-06-24] MEDS ORDERED: ZOLPIDEM TARTRATE 5 MG TABLET PO PRN (11:30)
--- NOTE | 2020-06-24 11:34 | NUR ---
MS NURSING NOTES RECEIVED ORDER FOR SOFT DIET FROM DR. FITZPATRICK AT THIS TIME. ORDER READ BACK AND CARRIED OUT.
[2020-06-24 12:00] VITALS: BP 143/100
[2020-06-24] MEDS: AMLODIPINE BESYLATE 5 MG TABLET PO SCH (12:00)
[2020-06-24] MEDS: LOSARTAN POTASSIUM 50 MG TABLET PO SCH (12:13)
[2020-06-24] MEDS: MULTIVITAMINS,THERAGRAN 1 UDTAB TABLET PO SCH (12:14)
[2020-06-24] MEDS: ZINC SULFATE 220 MG CAPSULE PO SCH (12:14)
--- NOTE | 2020-06-24 12:15 | NUR ---
MS RN NOTES PATIENT REFUSED TO TAKE NORVASC DESPITE OF EXPLANATION OF RISKS AND BENEFITS, PATIENT VERBALIZED UNDERSTANDING.
--- NOTE | 2020-06-24 12:17 | NUR ---
MS RN NURSING NOTES PATIENT REFUSED AMLODIPINE BLOOD PRESSURE MEDICATION AT THIS TIME.
[2020-06-24] MEDS: MECLIZINE HCL 25 MG TABLET PO SCH ×2 (14:45→20:17)
--- NOTE | 2020-06-24 15:00 | NUR ---
MS RN NOTES VTE SCORE IS 3, NOTIFIED DR. NANETTE RASCON. RECEIVED ORDER FOR LOVENOX 40MG SUBQ Q24H STARTING 2100 TONIGHT. ORDERS NOTED AND CARRIED OUT.
--- NOTE | 2020-06-24 15:45 | NUR ---
Accounting Representative consult: director of residential services consult was requested to discuss plan of care. Patient is an 79-year-old, female. SW met with the patient at her hospital bed in the med-surg unit. Patient was alert and oriented x4 and was calm and resting. Per patients chart, patient was brought in by ambulance on 06/24/20 with complaints of headache and dizziness. Patient currently lives at [address] [place] [address]; [phone] and stated that she has multiple caregivers (24h). Patient provided this SW with the contact of her primary caregiver, Nidia, . Patient stated that her caregivers help her with her ADLs and reported that she uses a walker. Patient currently receives SSI. SW assessed patients source of social support and patient stated that she is in regular contact with her brother. SW assessed patients history of mental illness and patient stated that she has no history of mental illness. Patient denies any history of substance abuse. Patient denies history of suicidal or homicidal ideation. SW discussed discharge plans with the patient. Patient stated that she plans to return to her prior living arrangement at home and stated that her caregiver, Nidia will be able to pick her up at the time of discharge. PLAN: Patient stated that she will return to her prior living arrangement at home and will be picked up by her caregiver, Nidia. SW will follow up with patients caregiver to verify that she will be able to pick her up. No further SS interventions at this time, however SS will remain available as needed.
--- NOTE | 2020-06-24 15:45 | NUR ---
Dredge Mate note: SW contacted patient's primary caregiver, Nidia, to discuss patient's discharge plan. Patient's caregiver stated that she has been the patient's caregiver for the last three years and verified that the patient has multiple caregivers (24h). Upon discharge, Nidia stated that she will be able to pickling drum operator the patient.
[2020-06-24 16:00] VITALS: BP 166/96
--- NOTE | 2020-06-24 18:51 | NUR ---
MS RN NOTES PATIENT IN BED ALERT ORIENTED X 3. NO ACUTE DISTRESS NOTED. BREATHING UNLABORED. DENIED ANY PAIN AT THIS TIME . IV ACCESS PATENT AND INTACT, NO REDNESS, NO SWELLING NOTED. NEEDS ATTENDED AND ANTICIPATED. SAFETY MEASURES IN PLACE, CALL LIGHT WITHIN REACH. WILL ENDORSE TO NIGHT NURSE FOR CONTINUITY OF CARE.
--- NOTE | 2020-06-24 19:10 | NUR ---
RN ms opening notes Received Pt from morning nurse. Pt is laying in bed comfortably watching TV. Pt is alert and orientedX2-3. Respiration is normal in room air. No SOB. No S/s of distress noted. Iv site at RAc# 20 is clean, intact, flushes well and SL. Safety precautions is maintained. Bed at low position, brakes locked, side railsupX3, hob elevated, and call light is within reach. Will continue to monitor.
[2020-06-24 20:00] VITALS: BP 133/75
[2020-06-24] MEDS ORDERED: ENOXAPARIN SODIUM 40 MG/0.4 ML DISP.SYRIN SQ SCH (21:00)
[2020-06-25] MEDS: MECLIZINE HCL 25 MG TABLET PO SCH (04:39)
[2020-06-25 06:35] LABS: BASOPHILS % (AUTO) 0.6 % (0.0-2.0); EOSINOPHILS % (AUTO) 3.7 % (0.0-6.0); HEMATOCRIT 44 % (33-45); HEMOGLOBIN 14.6 g/dL (11.5-14.8); LYMPHOCYTES # (AUTO) 0.8 /CMM (0.8-4.8); MEAN CORPUSCULAR HGB CONC 33 g/dl (31.0-36.0); MEAN CORPUSCULAR VOLUME 93 fL (82-100); MONOCYTES # (AUTO) 0.6 /CMM (0.1-1.30); MONOCYTES % (AUTO) 10.1 % (2.0-12.0); NEUTROPHILS # (AUTO) 4.3 /CMM (1.8-8.9); NEUTROPHILS % (AUTO) 71.6 % (43.0-81.0); PLATELET COUNT (AUTO) 280 /CMM (150-450)
[2020-06-25 06:45] LABS: CREATININE 0.6 mg/dL (0.6-1.3); PHOSPHORUS 3.7 mg/dL (2.5-4.9); POTASSIUM 3.1 mmol/L (3.5-5.1)
--- NOTE | 2020-06-25 06:45 | NUR ---
RN ms closing notes Pt is resting in bed comfortably. Pt is alert and orientedX2-3, confused and forget easily. Respiration is normal in room air. No SOB. No S/s of distress noted. VS is stable. Routine meds were given as ordered. Iv site at RAc# 20 is clean, intact, flushes well and SL. Kept Pt clean, dry and comfortable. Safety precautions is maintained. Bed at low position, brakes locked, side railsupX3, hob elevated, and call light is within reach. Will endorse to morning nurse for BOUBACAR.
--- NOTE | 2020-06-25 07:00 | NUR ---
received pt. this am yelling out for nurse often.
[2020-06-25 07:07] LABS: THYROID STIMULATING HORMONE 0.888 uIU/mL (0.358-3.74)
[2020-06-25 08:00] VITALS: BP 150/86
[2020-06-25] MEDS ORDERED: ASCORBIC ACID 500 MG TABLET PO SCH (09:00)
[2020-06-25] MEDS ORDERED: POTASSIUM CHLORIDE 20 MEQ POWDER PACKET PO ONE (09:00)
--- NOTE | 2020-06-25 09:00 | NUR ---
pt. confused,calling out often for nurse.side rails up. no acute distress.
--- NOTE | 2020-06-25 09:09 | NUR ---
given klor con for low potassium.
[2020-06-25] MEDS: ZINC SULFATE 220 MG CAPSULE PO SCH (09:10)
[2020-06-25] MEDS: AMLODIPINE BESYLATE 5 MG TABLET PO SCH (09:11)
[2020-06-25] MEDS: MULTIVITAMINS,THERAGRAN 1 UDTAB TABLET PO SCH (09:11)
[2020-06-25 09:13] VITALS: BP 150/86
[2020-06-25] MEDS: LOSARTAN POTASSIUM 50 MG TABLET PO SCH (09:13)
--- NOTE | 2020-06-25 10:47 | NUR ---
hep lock removed,bandage to site,all papers signed including belonging sheet. report to shad-caregiver.
--- NOTE | 2020-06-25 10:48 | NUR ---
taken to lobby via w/c accompanied by caregiver and metal products viewer.
== END 2020-06-25 10:45 | disposition home or self-care (01) | DRG 149 ==
LOC: ER 07:14 → TELE 09:58 → MED 11:16
PROVIDERS: ATTEND Nurse Practitioner Acute Care
DX: H81.10 Benign paroxysmal vertigo, unspecified ear (principal); F95.2 Tourette's disorder; I10 Essential (primary) hypertension; Z20.822 Contact with and (suspected) exposure to COVID-19; F03.90 Unspecified dementia, unspecified severity, without behavioral disturbance, psychotic disturbance, mood disturbance, and anxiety; E87.6 Hypokalemia; Z87.891 Personal history of nicotine dependence; R27.0 Ataxia, unspecified; R51.9 Headache, unspecified
CPT/HCPCS: 36415; 70450-TC; 80048-TC; 80061-TC; 83735-TC; 84100-TC; 84443-TC; 84484-TC; 85025-TC; 87081-TC; 97116-TC; 97530-TC; C9803; G0378; J1650; J8597

== ENCOUNTER 2020-10-14 09:59 | Inpatient (IN) | payer MEDICARE ==
[~2020-10-14] VITALS: Ht 160 cm; Wt 44.0 kg
[~2020-10-14 09:59] MED LIST changes: +ASCO-495 PO; -ESCI5TAB PO; -GABA-532 PO; +LOSA50TA39 GT; -METO50TA7 PO; +MULT-24 PO; +ZINC50TA65 PO
[2020-10-14] MEDS ORDERED: AMIN30LI2 GT (10:13)
[2020-10-14] MEDS ORDERED: ACET650S26 GT (10:13)
[2020-10-14] MEDS ORDERED: HYDR-4077 GT (10:13)
[2020-10-14] MEDS ORDERED: SERT25TA5 GT (10:13)
[2020-10-14] MEDS ORDERED: POVI3780 TP (10:13)
[2020-10-14] MEDS ORDERED: MAGN400O6 GT (10:13)
[2020-10-14] MEDS ORDERED: OMEP20CA15 GT (10:13)
--- NOTE | 2020-10-14 10:20 | NUR ---
patient came in to the er lani, from [facility], noted coffee ground emesis. On room air, breathing evenly and unlabored. Connected to the monitor and pulse ox. Kept comfortable, will continue to monitor accordingly.
--- NOTE | 2020-10-14 10:32 | NUR ---
IV started and blood drawned and sent to lab.
[2020-10-14 10:36] LABS: BASOPHILS % (AUTO) 0.1 % (0.0-2.0); EOSINOPHILS % (AUTO) 0.4 % (0.0-6.0); HEMATOCRIT 39 % (33-45); LYMPHOCYTES # (AUTO) 0.7 K/uL (0.8-4.8); LYMPHOCYTES % (AUTO) 4.5 % (20.0-44.0); MEAN CORPUSCULAR HGB CONC 33 g/dl (31.0-36.0); MEAN CORPUSCULAR VOLUME 95 fL (82-100); MONOCYTES # (AUTO) 0.8 K/uL (0.1-1.30); MONOCYTES % (AUTO) 5.1 % (2.0-12.0); NEUTROPHILS # (AUTO) 13.5 K/uL (1.8-8.9); NEUTROPHILS % (AUTO) 89.9 % (43.0-81.0); PLATELET COUNT (AUTO) 419 K/uL (150-450); RED BLOOD CELL COUNT(AUTO) 4.14 MIL/uL (4.0-5.2)
[2020-10-14 10:44] LABS: CALCIUM, SERUM 9.2 mg/dL (8.5-10.1); CARBON DIOXIDE 29 mmol/L (21-32); CHLORIDE 102 mmol/L (98-107); CREATININE 0.6 mg/dL (0.6-1.3); GLUCOSE 115 mg/dL (74-106); POTASSIUM 4.1 mmol/L (3.5-5.1); SODIUM SERUM 137 mmol/L (136-145); UREA NITROGEN, BLOOD 19 mg/dL (7-18)
[2020-10-14 10:50] LABS: ALANINE AMINOTRANSFERASE 23 U/L (12-78); ALBUMIN 3.4 g/dL (3.4-5.0); ALKALINE PHOSPHATASE 93 U/L (46-116); ASPARTATE AMINOTRANSFERASE 24 U/L (15-37); BILIRUBIN,DIRECT 0.1 mg/dL (0.0-0.2); BILIRUBIN,TOTAL 0.4 mg/dL (0.2-1.0); TOTAL PROTEIN, SERUM 7.6 g/dL (6.4-8.2)
--- NOTE | 2020-10-14 11:20 | NUR ---
URINE COLLECTED AND SENT TO LAB
--- NOTE | 2020-10-14 11:40 | NUR ---
MOVE SHEET SUBMITTED AND CALLED FOR BED.
[2020-10-14 11:51] LABS: BILIRUBIN,URINE NEGATIVE (NEGATIVE); COLOR,URINE YELLOW (YELLOW); LEUKOCYTE ESTERASE ,URINE NEGATIVE (NEGATIVE); NITRITE, URINE NEGATIVE (NEGATIVE); PROTEIN,URINE NEGATIVE (NEGATIVE); UGLUCOSE NEGATIVE (NEGATIVE); UROBILINOGEN,URINE 0.2 EU/dL (0.2)
--- NOTE | 2020-10-14 12:05 | NUR ---
BED GIVEN. ROOM 115 BED 1 PER RN SUP
[2020-10-14] MEDS ORDERED: MORPHINE SULFATE INJ 2 MG/ML DISP.SYRIN IV PRN (12:30)
[2020-10-14] MEDS ORDERED: ONDANSETRON HCL/PF 4 MG/2 ML VIAL IVP PRN (12:30)
[2020-10-14] MEDS ORDERED: LORAZEPAM INJ 2 MG/ML VIAL IV PRN (12:30)
--- NOTE | 2020-10-14 12:45 | NUR ---
wheeled patient via gurney accompanied by EMT in no distress. RN assigned to patient at bedside to assume care.
[2020-10-14] MEDS ORDERED: HOME MED MISCELLANEOUS XX SCH (13:00)
[2020-10-14] MEDS: PANTOPRAZOLE 40 MG VIAL IV SCH ×2 (13:23→21:39)
[2020-10-14 15:51] VITALS: BP 129/77
--- NOTE | 2020-10-14 17:21 | NUR ---
RN NOTES RECEIVED PATIENT FROM ER, ON ROOM AIR SATURATION OF 98-100 %, STATES NO PAIN AT THIS TIME, NO SOB AND NO DISTRESS NOTED, RAC IV INTACT PATENT FLUSHING, KADY CARE GIVEN AND REPOSITIONED FOR COMFORT, EXPLAINED HOW TO USE TV CONTROLS AND CALL LIGHT ABLE TO DEMONSTRATE ABILITY TO USE DEVICES, BUT CHOOSES TO LAY IN BED AND SCREAM HELLO, REDIRECTED OFTEN BUT STILL CONTINUES TO SCREAM HELLO , ATTENTION SEEKING, REASSURED WE ARE HERE TO HELP HER, CALL LIGHT ANSWERED IN A TIMELY MANNER, ALL SAFETY MEASURES IN PLACE, BED LOW TO FLOOR, CALL LIGHT IN REACH, ALL NEEDS CARED FOR IN A TIMELY MANNER.
[2020-10-14 18:13] LABS: BASOPHILS % (AUTO) 0.4 % (0.0-2.0); EOSINOPHILS % (AUTO) 0.5 % (0.0-6.0); HEMATOCRIT 33 % (33-45); HEMOGLOBIN 11.1 g/dL (11.5-14.8); LYMPHOCYTES # (AUTO) 0.8 K/uL (0.8-4.8); LYMPHOCYTES % (AUTO) 7.9 % (20.0-44.0); MEAN CORPUSCULAR HGB CONC 34 g/dl (31.0-36.0); MEAN CORPUSCULAR VOLUME 95 fL (82-100); MONOCYTES # (AUTO) 0.8 K/uL (0.1-1.30); MONOCYTES % (AUTO) 7.1 % (2.0-12.0); NEUTROPHILS # (AUTO) 8.9 K/uL (1.8-8.9); NEUTROPHILS % (AUTO) 84.1 % (43.0-81.0); PLATELET COUNT (AUTO) 382 K/uL (150-450); RED BLOOD CELL COUNT(AUTO) 3.48 MIL/uL (4.0-5.2); WHITE BLOOD COUNT (AUTO) 10.6 K/uL (4.3-11.0)
[2020-10-14 20:00] VITALS: BP 120/66
[2020-10-14] MEDS: IV D5/ 0.9% NACL 1,000 ML IV PRN (22:12)
[2020-10-15 04:00] VITALS: BP 142/65
[2020-10-15 06:43] LABS: BASOPHILS % (AUTO) 0.6 % (0.0-2.0); HEMATOCRIT 35 % (33-45); HEMOGLOBIN 11.8 g/dL (11.5-14.8); LYMPHOCYTES # (AUTO) 0.9 K/uL (0.8-4.8); LYMPHOCYTES % (AUTO) 12.6 % (20.0-44.0); MEAN CORPUSCULAR HGB CONC 33 g/dl (31.0-36.0); MEAN CORPUSCULAR VOLUME 95 fL (82-100); MONOCYTES # (AUTO) 0.6 K/uL (0.1-1.30); MONOCYTES % (AUTO) 7.8 % (2.0-12.0); NEUTROPHILS # (AUTO) 5.8 K/uL (1.8-8.9); PLATELET COUNT (AUTO) 377 K/uL (150-450); RED BLOOD CELL COUNT(AUTO) 3.74 MIL/uL (4.0-5.2); WHITE BLOOD COUNT (AUTO) 7.5 K/uL (4.3-11.0)
[2020-10-15 07:03] LABS: CALCIUM, SERUM 8.6 mg/dL (8.5-10.1); CREATININE 0.6 mg/dL (0.6-1.3); PHOSPHORUS 3.1 mg/dL (2.5-4.9); POTASSIUM 3.9 mmol/L (3.5-5.1)
[2020-10-15 07:05] LABS: THYROID STIMULATING HORMONE 0.604 uIU/mL (0.358-3.74)
--- NOTE | 2020-10-15 07:47 | NUR ---
RN OPENING NOTE Pt is awake, A/O X 3, no respiratory distress, no SOB. Denies any pain, Remains NPO, Gt clamped. RFA IV site clean with no s/sx of infiltration, D5NS @75cc/hr. Safety precautions implemented, bed locked in lowest position, call light within reach.
[2020-10-15] MEDS: PANTOPRAZOLE 40 MG VIAL IV SCH ×2 (08:04→21:20)
[2020-10-15] MEDS: IV D5/ 0.9% NACL 1,000 ML IV PRN ×2 (10:46→23:07)
[2020-10-15 12:00] VITALS: BP 138/68
[2020-10-15] MEDS: LORAZEPAM INJ 2 MG/ML VIAL IV PRN ×2 (12:46→23:10)
[2020-10-15] MEDS: JEVITY 1.2 CAL 1,000 ML BOTTLE GT PRN (17:51)
--- NOTE | 2020-10-15 19:13 | NUR ---
RN CLOSING NOTES Pt is A/O X 2 with periods of restlessness screaming and yelling. No respiratory distress, no SOB. RFA IV site clean with no s/sx of infiltration, IV D5NS @ 75cc/hr. Administered Ativan PRN for agitation with relief. Seen by GI with orders to resume Enteral feeding and NPO starting at midnight. Spoke with brother he gave verbal consent. Safety precautions implemented, bed locked in lowest position, call light within reach.
[2020-10-15 20:00] VITALS: BP 126/76
--- NOTE | 2020-10-16 02:34 | NUR ---
MS-1/GEOPHYSICS TEACHER REPORT TO FELIPE CALVERT FOR CONT OF CARE.
--- NOTE | 2020-10-16 02:35 | NUR ---
RN NOTE RECEIVED PT SLEEPING, AROUSES EASILY. NOT IN ANY DISTRESS. ON IV D5NS RUNNING, WILL CONTINUE TO MONITOR.
[2020-10-16 04:00] VITALS: BP 135/68
--- NOTE | 2020-10-16 06:54 | NUR ---
RN NOTE PT AWAKE ALERT. NOT IN ANY DISTRESS. TOLERATING ROOM AIR. DENIES PAIN AT THIS TIME. PT ON NPO FOR EGD TODAY. GT CLAMPED. CONTINUE ON IVFLUIDS. ALL SAFETY MAINTAINED. NEEDS ATTENDED. WILL ENDORSE TO NEXT SHIFT NURSE FOR BOUBACAR.
--- NOTE | 2020-10-16 07:13 | NUR ---
rn note pt refuses am labs. explained risks and benefits. endorsed to next shift nurse.
--- NOTE | 2020-10-16 07:48 | NUR ---
MS/RN OPENING NOTES RECEIVED PATIENT ON BED AWAKE ALERT AND ORIENTED X 2-3. PATIENT IS ON ROOM AIR SATURATING WELL. PATIENT IN NO APPARENT RESPIRATORY DISTRESS NOTED. NO COMPLAINED OF PAIN AT THIS TIME. PATIENT REFUSED FOR BLOOD DRAW EXPLAINED THE RISK AND BENEFITS. MD WAS AWARE. WILL CONTINUE TO MONITOR.
[2020-10-16 08:00] VITALS: BP 165/74
[2020-10-16] MEDS: PANTOPRAZOLE 40 MG VIAL IV SCH ×2 (09:23→20:41)
--- NOTE | 2020-10-16 10:00 | NUR ---
MS/RN NOTES PATIENT IS AWAKE ALERT AND ORIENTED X2-3. PATIENT IN NO APPARENT RESPIRATORY DISTRESS NOTED. NO COMPLAINED OF PAIN NOTED AT THIS TIME. PATIENT PICK BY OR NURSE FOR EGD.
[2020-10-16] MEDS ORDERED: hydrALAZINE HCL IV 20 MG VIAL ONE (10:49)
--- NOTE | 2020-10-16 11:51 | NUR ---
MS/RN NOTES PATIENT IS ALERT AND ORIENTED X 2-3. PATIENT IS ON ROOM AIR SATURATION 94%. NO SON NOTED. PATIENT REQUEST FOR ATIVAN. DR. PENG ORDER RESUME PREVIOUS MEDS AND RESUME TUBE FEEDING. NOTED AND CARRIED OUT. WILL CONTINUE TO MONITOR.
[2020-10-16] MEDS: LORAZEPAM INJ 2 MG/ML VIAL IV PRN ×2 (12:00→20:43)
[2020-10-16] MEDS: IV D5/ 0.9% NACL 1,000 ML IV PRN (12:05)
[2020-10-16 14:55] LABS: BASOPHILS # (AUTO) 0.1 K/uL (0.0-0.2); BASOPHILS % (AUTO) 0.6 % (0.0-2.0); EOSINOPHILS % (AUTO) 0.3 % (0.0-6.0); HEMATOCRIT 34 % (33-45); HEMOGLOBIN 11.4 g/dL (11.5-14.8); LYMPHOCYTES # (AUTO) 0.6 K/uL (0.8-4.8); LYMPHOCYTES % (AUTO) 5.7 % (20.0-44.0); MEAN CORPUSCULAR HGB CONC 33 g/dl (31.0-36.0); MEAN CORPUSCULAR VOLUME 95 fL (82-100); MONOCYTES # (AUTO) 0.7 K/uL (0.1-1.30); MONOCYTES % (AUTO) 6.8 % (2.0-12.0); NEUTROPHILS # (AUTO) 9.5 K/uL (1.8-8.9); NEUTROPHILS % (AUTO) 86.6 % (43.0-81.0); PLATELET COUNT (AUTO) 341 K/uL (150-450); RED BLOOD CELL COUNT(AUTO) 3.62 MIL/uL (4.0-5.2); WHITE BLOOD COUNT (AUTO) 10.9 K/uL (4.3-11.0)
[2020-10-16 15:12] LABS: CARBON DIOXIDE 27 mmol/L (21-32); CHLORIDE 107 mmol/L (98-107); CREATININE 0.5 mg/dL (0.6-1.3); GLUCOSE 128 mg/dL (74-106); POTASSIUM 3.6 mmol/L (3.5-5.1); SODIUM SERUM 144 mmol/L (136-145); UREA NITROGEN, BLOOD 6 mg/dL (7-18)
--- NOTE | 2020-10-16 17:55 | NUR ---
[facility] positive both nares, bactroban ointment 2x a day was order md was aware.
--- NOTE | 2020-10-16 19:13 | NUR ---
MS/RN CLOSING NOTES RECEIVED PATIENT ON BED AWAKE ALERT AND ORIENTED X 2-3. PATIENT IS ON ROOM AIR SATURATING WELL. PATIENT IN NO APPARENT RESPIRATORY DISTRESS NOTED. NO COMPLAINED OF PAIN AT THIS TIME. IV ACCESS AT RIGHT UPPER FOREARM # 18G WITH FLUID OF D5NS AT 75ML/HR ON AND INFUSING WELL. SEEN AND EXAMINED BY MD WITH ORDERS MADE AND CARRIED OUT. ALL DUE MEDICATIONS WAS GIVEN. SAFETY PRECAUTIONS WAS IN PLACED. BED IN LOWEST POSITION AND LOCKED. SIDERAILS UP X2. CALL LIGHT WITHIN REACH. WILL ENDORSED TO MANUAL LATHE OPERATOR FOR BOUBACAR.
[2020-10-16 20:00] VITALS: BP 153/85
[2020-10-16] MEDS: MUPIROCIN OINT 2% 22 GM TUBE NS SCH ×2 (20:48→20:50)
[2020-10-17 04:00] VITALS: BP 154/78
--- NOTE | 2020-10-17 05:36 | NUR ---
MS-1/BROCK PT TRANSFERRED TO ROOM 327-1
--- NOTE | 2020-10-17 05:55 | NUR ---
TRANSFER NOTES RECEIVED PATIENT IN BED. PT IS AWAKE. ON ROOM AIR AND TOLERATING WELL. NO S/SX OF RESPIRATORY DISTRESS NOTED. NO SOB NOTED. RECEIVED REPORT FROM JARROD NURSE.
[2020-10-17] MEDS: JEVITY 1.2 CAL 1,000 ML BOTTLE GT PRN (06:03)
--- NOTE | 2020-10-17 06:37 | NUR ---
MS RN CLOSING NOTES PT IS LYING IN BED AWAKE. PT IS AOx2-3. ON ROOM AIR AND TOLERATING WELL. NO S/SX OF RESPIRATORY DISTRESS NOTED. NO SOB NOTED. IV ACCESS IN RFA#18. IV IS PATENT, INTACT, FLUSHING WELL, AND SALINE LOCKED. ALL NEEDS MET. PT IS CLEAN AND DRY. SAFETY MEASURES IN PLACE: BED IN LOWEST, LOCKED POSITION, BRAKES ON, AND SIDERAILS UPx2. TABLE AND CALL LIGHT WITHIN REACH. WILL ENDORSE TO ONCOMING SHIFT.
--- NOTE | 2020-10-17 07:38 | NUR ---
MS RN OPENING NOTES RECEIVED PATIENT IN BED AWAKE ALERT AND ORIENTED X 2-3. PATIENT IS ON ROOM AIR SATURATING WELL. NO APPARENT RESPIRATORY DISTRESS NOTED. NO SOB. NO COMPLAINTS OF PAIN AT THIS TIME. IV ACCESS RFA#[id number] PATENT AND INTACT. SAFETY MEASURES IN PLACE WITH BED LOCKED LOW AND SIDE RAILS UP X 2. WILL CONTINUE TO MONITOR THROUGHOUT SHIFT.
[2020-10-17 08:00] VITALS: BP 147/70
[2020-10-17] MEDS: PANTOPRAZOLE 40 MG VIAL IV SCH (08:41)
[2020-10-17] MEDS: LORAZEPAM INJ 2 MG/ML VIAL IV PRN (08:41)
[2020-10-17] MEDS: MUPIROCIN OINT 2% 22 GM TUBE NS SCH (08:47)
[2020-10-17] MEDS ORDERED: OMEP20TA20 GT (10:34)
--- NOTE | 2020-10-17 12:49 | NUR ---
MS RN NOTES REPORT GIVEN TO EN[facility] BER[facility] AT [facility].
--- NOTE | 2020-10-17 15:10 | NUR ---
MS POLISHER AND BUFFER NOTES PATIENT WAS DISCHARGED WITH STABLE VITAL SIGNS. NO S/S OF DISTRESS NOTED. NO C/O PAIN AT THIS TIME. IV ACCESS AND WRIST BAND REMOVED. PATIENT DISCHARGE SUMMARY AND INSTRUCTIONS REVIEWED AND SIGNED WITH PATIENT. PATIENT WAS PICKED UP VIA AMBULANCE. REPORT GIV[facility] TO [facility]ERG AT [facility].
== END 2020-10-17 15:00 | DRG 377 ==
LOC: ER 10:04 → MEDSG1 12:32 → MED 10-17 05:35
PROVIDERS: ADMIT Nurse Practitioner Acute Care; ATTEND Nurse Practitioner Acute Care
PROC: 0DJ08ZZ Inspection of Upper Intestinal Tract, Via Natural or Artificial Opening Endoscopic (ICD-10-PCS; principal; 2020-10-16)
DX: K25.4 Chronic or unspecified gastric ulcer with hemorrhage (principal); E43 Unspecified severe protein-calorie malnutrition; R64 Cachexia; Z68.1 Body mass index [BMI] 19.9 or less, adult; D62 Acute posthemorrhagic anemia; E86.0 Dehydration; F03.90 Unspecified dementia, unspecified severity, without behavioral disturbance, psychotic disturbance, mood disturbance, and anxiety; F95.2 Tourette's disorder; K21.00 Gastro-esophageal reflux disease with esophagitis, without bleeding; K44.9 Diaphragmatic hernia without obstruction or gangrene; Z20.822 Contact with and (suspected) exposure to COVID-19; J44.9 Chronic obstructive pulmonary disease, unspecified; I10 Essential (primary) hypertension; Z93.1 Gastrostomy status; Z79.899 Other long term (current) drug therapy; R13.10 Dysphagia, unspecified; R27.0 Ataxia, unspecified; Z87.891 Personal history of nicotine dependence; K59.00 Constipation, unspecified
CPT/HCPCS: 36415; 71045-TC; 80048-TC; 80076-TC; 83605-TC; 84100-TC; 84443-TC; 84484-TC; 85025-TC; 85730-TC; 86850-TC; 87040-TC; 87081-TC; 87086-TC; A4217; C9113; G0378; J0360; J2060; J2270; J2704; J7030; J7042; U0003

== ENCOUNTER 2020-10-26 05:27 | Emergency (ER) | payer MEDICARE ==
[~2020-10-26] VITALS: Ht 170.2 cm; Wt 63.5 kg
[~2020-10-26 05:27] MED LIST changes: +ACET650S26 GT; +AMIN30LI2 GT; -AMLO-212 PO; -ASCO-495 PO; +HYDR-4077 GT; +MAGN400O6 GT; -MULT-24 PO; +OMEP20CA15 GT; +OMEP20TA20 GT; +POVI3780 TP; +SERT25TA5 GT; -ZINC50TA65 PO
--- NOTE | 2020-10-26 05:30 | NUR ---
BIBRA FROM SNF C/O GLF WITH L SHOULDER PAIN AND LACERATION. BIBRA FROM SNF C/O GLF WITH L SHOULDER PAIN AND LACERATION. PT A/OX4. TOLERATING R/A WELL.
--- NOTE | 2020-10-26 05:35 | NUR ---
WOUND CARE DONE TO LACERATION ON FOREHEAD
--- NOTE | 2020-10-26 05:37 | NUR ---
CERVICAL COLLAR PUT ON PT.
--- NOTE | 2020-10-26 05:41 | NUR ---
PT TAKE TO CT
--- NOTE | 2020-10-26 05:53 | NUR ---
PT RETURNED TO ER ROOM 1
[2020-10-26] MEDS ORDERED: ACETAMINOPHEN 325 MG TABLET ONE (06:23)
[2020-10-26] MEDS ORDERED: ACETAMINOPHEN 325 MG TABLET PO ONE (06:30)
--- NOTE | 2020-10-26 06:30 | NUR ---
PENCIL INSPECTOR TO BEDSIDE
--- NOTE | 2020-10-26 07:35 | NUR ---
Received pt in bed responded when call name lauceration on forhead clean done with DERMABAN NO BLEEDING on site
[2020-10-26] MEDS ORDERED: TDAP [DIPH/PERTUSSIS/TET] 0.5 ML VIAL IM ONE ×2 (08:47→09:00)
--- NOTE | 2020-10-26 09:03 | NUR ---
TRANSPORT [facility] ETA 1300 VERY BUSY TODAY
--- NOTE | 2020-10-26 09:05 | NUR ---
TRANSPORT [facility] CALLED ETA 60 MINS PER BALDO.
--- NOTE | 2020-10-26 09:22 | NUR ---
transfer back to [facility] hand off to OTIS CALVERT PT RECEVED TD TODAY NO REACTION
[2020-10-26 10:11] VITALS: BP 135/75
== END 2020-10-26 10:19 ==
LOC: ER 05:32
DX: S01.81XA Laceration without foreign body of other part of head, initial encounter (principal); M25.512 Pain in left shoulder; I10 Essential (primary) hypertension; F03.90 Unspecified dementia, unspecified severity, without behavioral disturbance, psychotic disturbance, mood disturbance, and anxiety; Z79.899 Other long term (current) drug therapy; W18.39XA Other fall on same level, initial encounter; Y93.89 Activity, other specified; Y92.89 Other specified places as the place of occurrence of the external cause; Y99.8 Other external cause status
CPT/HCPCS: 70450-TC; 70486-TC; 72125-TC; 73030-TC; 90715

== ENCOUNTER 2020-10-29 22:28 | Emergency (ER) | payer MEDICARE ==
[~2020-10-29] VITALS: Ht 160 cm; Wt 54.4 kg
[~2020-10-29 22:28] MED LIST changes: -OMEP20TA20 GT
--- NOTE | 2020-10-29 22:30 | NUR ---
BIBRA C/O GLF OFF OF BED. +LACERATION ON BACK OF HEAD. +DIZZINESS. +HEADACHE +L SIDE ARM PAIN. PT A/OX3. TOLERATING R/A WELL. SAFETY PRECAUTIONS IN PLACE.
--- NOTE | 2020-10-29 23:02 | NUR ---
WOUND TX DONE TO BACK OF HEAD BY MD BRAR. PT TAKEN TO CT
--- NOTE | 2020-10-29 23:18 | NUR ---
PT RETURNED TO ER ROOM 3
--- NOTE | 2020-10-29 23:32 | NUR ---
BLOODWORK DRAWN AND SENT TO LAB. INITIATED RAC#18G S/L
[2020-10-29 23:43] LABS: BASOPHILS % (AUTO) 0.3 % (0.0-2.0); HEMATOCRIT 35 % (33-45); HEMOGLOBIN 11.4 g/dL (11.5-14.8); LYMPHOCYTES # (AUTO) 1.1 K/uL (0.8-4.8); LYMPHOCYTES % (AUTO) 12.9 % (20.0-44.0); MEAN CORPUSCULAR HGB CONC 32 g/dl (31.0-36.0); MEAN CORPUSCULAR VOLUME 97 fL (82-100); MONOCYTES # (AUTO) 0.6 K/uL (0.1-1.30); MONOCYTES % (AUTO) 7.1 % (2.0-12.0); NEUTROPHILS # (AUTO) 6.2 K/uL (1.8-8.9); NEUTROPHILS % (AUTO) 75.7 % (43.0-81.0); PLATELET COUNT (AUTO) 400 K/uL (150-450); RED BLOOD CELL COUNT(AUTO) 3.64 MIL/uL (4.0-5.2); WHITE BLOOD COUNT (AUTO) 8.2 K/uL (4.3-11.0)
[2020-10-29 23:57] LABS: CALCIUM, SERUM 8.9 mg/dL (8.5-10.1); CARBON DIOXIDE 28 mmol/L (21-32); CHLORIDE 106 mmol/L (98-107); CREATININE 0.7 mg/dL (0.6-1.3); GLUCOSE 92 mg/dL (74-106); POTASSIUM 4.3 mmol/L (3.5-5.1); SODIUM SERUM 143 mmol/L (136-145); UREA NITROGEN, BLOOD 21 mg/dL (7-18)
[2020-10-30 00:17] LABS: ALANINE AMINOTRANSFERASE 14 U/L (12-78); ALBUMIN 2.9 g/dL (3.4-5.0); ALKALINE PHOSPHATASE 80 U/L (46-116); ASPARTATE AMINOTRANSFERASE 14 U/L (15-37); BILIRUBIN,DIRECT 0.1 mg/dL (0.0-0.2); BILIRUBIN,TOTAL 0.2 mg/dL (0.2-1.0)
--- NOTE | 2020-10-30 02:44 | NUR ---
called radha armas 90 min to 2hrs
--- NOTE | 2020-10-30 03:38 | NUR ---
gave report to kaylee garcía at [facility] for jean
--- NOTE | 2020-10-30 03:42 | NUR ---
EDUCATED PT ON D/C. PT SIGNED D/C PAPER, VERBALIZED UNDERSTANDING. DRESSING TO HEAD KEPT C/D/I; NO ACTIVE BLEEDING NOTED. GTUBE INTACT. DC IV ACCESS; NO ACTIVE BLEEDING NOTED. AWAITING FOR AMBULANCE ARRIVAL
[2020-10-30 03:48] VITALS: BP 141/84
--- NOTE | 2020-10-30 04:40 | NUR ---
REPORT GIVEN TO MISSILE INSPECT[facility]; PT DC TO [facility]. ALL PAPERWORK GIVEN TO PARAMENDIC. PT D/C WITH 2L N/C TOLERATING AT 96%
== END 2020-10-30 04:51 ==
LOC: ER 22:31
DX: S01.01XA Laceration without foreign body of scalp, initial encounter (principal); S09.8XXA Other specified injuries of head, initial encounter; M25.512 Pain in left shoulder; F03.90 Unspecified dementia, unspecified severity, without behavioral disturbance, psychotic disturbance, mood disturbance, and anxiety; I10 Essential (primary) hypertension; Z79.899 Other long term (current) drug therapy; W19.XXXA Unspecified fall, initial encounter; Y93.89 Activity, other specified; Y92.89 Other specified places as the place of occurrence of the external cause; Y99.8 Other external cause status
CPT/HCPCS: 36415; 70450-TC; 71045-TC; 72125-TC; 72170-TC; 73030-TC; 80048-TC; 80076-TC; 82550-TC; 84484-TC; 85025-TC

== ENCOUNTER 2020-11-30 14:03 | Inpatient (IN) | payer MEDICARE ==
[~2020-11-30] VITALS: Ht 160 cm; Wt 41.7 kg
[2020-11-30] MEDS ORDERED: HALOPERIDOL LACTATE INJ 5 MG/ML VIAL ONE ×2 (14:24→15:10)
[2020-11-30] MEDS ORDERED: HALOPERIDOL LACTATE INJ 5 MG/ML VIAL IM ONE (14:30)
--- NOTE | 2020-11-30 14:30 | NUR ---
, from home, GT dislodged this morning. On room air, breathing evenly and unlabored. Connected to the monitor and pulse ox. Kept comfortable, will continue to monitor accordingly.
[2020-11-30 16:20] LABS: BASOPHILS % (AUTO) 0.5 % (0.0-2.0); HEMATOCRIT 35 % (33-45); HEMOGLOBIN 11.6 g/dL (11.5-14.8); LYMPHOCYTES # (AUTO) 0.9 K/uL (0.8-4.8); MEAN CORPUSCULAR HGB CONC 33 g/dl (31.0-36.0); MEAN CORPUSCULAR VOLUME 95 fL (82-100); MONOCYTES # (AUTO) 0.5 K/uL (0.1-1.30); MONOCYTES % (AUTO) 7.5 % (2.0-12.0); NEUTROPHILS # (AUTO) 5.6 K/uL (1.8-8.9); PLATELET COUNT (AUTO) 290 K/uL (150-450); RED BLOOD CELL COUNT(AUTO) 3.68 MIL/uL (4.0-5.2); WHITE BLOOD COUNT (AUTO) 7.1 K/uL (4.3-11.0)
[2020-11-30 16:35] LABS: CALCIUM, SERUM 8.4 mg/dL (8.5-10.1); CREATININE 0.8 mg/dL (0.6-1.3); POTASSIUM 3.8 mmol/L (3.5-5.1)
--- NOTE | 2020-11-30 16:44 | NUR ---
covid swab collected and sent to lab.
--- NOTE | 2020-11-30 17:02 | NUR ---
[facility] CALLED TYPEWRITERS FUNCTIONAL TESTER PAGED.
--- NOTE | 2020-11-30 18:08 | NUR ---
report given to davis CALVERT for jean.
[2020-11-30] MEDS ORDERED: ONDANSETRON HCL/PF 4 MG/2 ML VIAL IVP PRN (18:30)
[2020-11-30] MEDS ORDERED: IV LR 1000 ML 1,000 ML IV PRN (18:30)
[2020-11-30] MEDS ORDERED: Z GUARD REMEDY 2 OZ OINT TP PRN (18:30)
[2020-11-30] MEDS ORDERED: ACETAMINOPHEN 650 MG/SUPP.RECT RC PRN (18:30)
--- NOTE | 2020-11-30 19:06 | NUR ---
wheeled patient via gurney accompanied by emt in no distress, RN assigned to patient at bedside to assume care.
--- NOTE | 2020-11-30 20:00 | NUR ---
ADMITTED PATIENT FROM HOME DUE TO GT DISLODGEMENT, PATIENT REMOVED PEG TUBE, ALERT/ORIENTED X2-3, HX OF DEMENTIA, SLURRED SPEECH, ROOM AIR, REDNESS TO BUTTOCKS, SOME SMALL SCAB IN LOWER AND UPPER EXTREMITIES. FOR PEG TUBE PLACEMENT.
[2020-11-30] MEDS ORDERED: ENOXAPARIN SODIUM 40 MG/0.4 ML DISP.SYRIN SQ SCH (21:00)
[2020-11-30] MEDS ORDERED: LORAZEPAM INJ 2 MG/ML VIAL IV ONE (22:30)
[2020-12-01] MEDS ORDERED: LORAZEPAM INJ 2 MG/ML VIAL IV ONE (04:30)
--- NOTE | 2020-12-01 05:02 | NUR ---
BILATERAL WRIST RESTRAINTS APPLIED, PATIENT VERY AGITATED, RESTLESS, GETTING OUT OF BED, SCREAMING. WILL CONTINUE TO MONITOR PER RESTRAINTS PROTOCOL
[2020-12-01 06:32] LABS: ALBUMIN 3.5 g/dL (3.4-5.0); BILIRUBIN,TOTAL 0.4 mg/dL (0.2-1.0); CALCIUM, SERUM 8.6 mg/dL (8.5-10.1); CREATININE 0.6 mg/dL (0.6-1.3); PHOSPHORUS 3.3 mg/dL (2.5-4.9); POTASSIUM 3.8 mmol/L (3.5-5.1); TOTAL PROTEIN, SERUM 7.3 g/dL (6.4-8.2)
[2020-12-01 06:52] LABS: BASOPHILS % (AUTO) 0.4 % (0.0-2.0); HEMATOCRIT 36 % (33-45); HEMOGLOBIN 11.9 g/dL (11.5-14.8); LYMPHOCYTES # (AUTO) 0.9 K/uL (0.8-4.8); LYMPHOCYTES % (AUTO) 12.3 % (20.0-44.0); MEAN CORPUSCULAR HGB CONC 33 g/dl (31.0-36.0); MEAN CORPUSCULAR VOLUME 95 fL (82-100); MONOCYTES # (AUTO) 0.6 K/uL (0.1-1.30); MONOCYTES % (AUTO) 7.8 % (2.0-12.0); NEUTROPHILS # (AUTO) 5.5 K/uL (1.8-8.9); NEUTROPHILS % (AUTO) 77.5 % (43.0-81.0); PLATELET COUNT (AUTO) 270 K/uL (150-450); RED BLOOD CELL COUNT(AUTO) 3.79 MIL/uL (4.0-5.2); WHITE BLOOD COUNT (AUTO) 7.1 K/uL (4.3-11.0)
--- NOTE | 2020-12-01 07:23 | NUR ---
PATIENT STILL ANXIOUS, AGITATED, SCREAMING, PUT ON PAT CHAIR FOR SAFETY, TRYING TO GET OUT OF BED. FOR PEG TUBE PLACEMENT, CONSENT NOT SIGNED, NO FAMILY MEMBER, NO DECISION MAKER. CALLED CAREGIVER, NO ANSWER.
--- NOTE | 2020-12-01 07:27 | NUR ---
RN OPENING NOTE- PT IS ALERT ORIENTED TO PERSON PLACE, DEMENTED, LABILE YELLING AND SCREAMING AT TIMES. PT DIRECTABLE TO A DEGREE. IV STARTED BY NOC SHIFT RN . 22G LFA. DR MORIN AT BEDSIDE FOR REINSERTION OF GTUBE. TOLERATED WELL. ORDERED KUB GASTROGRAFIN FOR PLACEMENT. PT NPO. BED LOCKED, MONITORING FOR SAFETY AND BEHAVIOR.
[2020-12-01 08:00] VITALS: BP 130/64
[2020-12-01] MEDS ORDERED: DIATR MEGLU/DIATRIZOATE SODIUM 30 ML BOTTLE (GASTROGRAPHIN) ONE ×2 (08:28→10:26)
--- NOTE | 2020-12-01 09:25 | NUR ---
RN NOTE- AK AGOTATED SCREAMING ATTEMPTING TO GET OOB. CARINA HARRIS ZYPREXA 5 MG X ONE DOSE IM
[2020-12-01] MEDS ORDERED: OLANZAPINE 10 MG VIAL IM ONE (09:30)
[2020-12-01] MEDS ORDERED: OLANZAPINE 10 MG VIAL IM STA (10:42)
--- NOTE | 2020-12-01 10:55 | NUR ---
RN NOTE- PT STILL LABILE SCREAMING NOT DIRECTABLE. CARINA ALEX ORDERED ANOTHER 5 MG ZYPREXA IM DOSE X ONE
--- NOTE | 2020-12-01 13:17 | NUR ---
RN NOTE- DISCHARGE/ PT DC HOME IN CARE OF CAREGIVER WHO CAME TO PICK PT UP. VS STABLE, GT PER RADIOLOGY IN PLACE. 4X4 GAUZE COVERING AND ABD PAD PLACED. ABDOMINAL WRAP PLACED ON PT WELL. PT VALUABLES RETURNED TO PT AND SIGNED FOR BY CAREGIVER. AFTER CARE REVIEWED AND UNDERSTOOD BY CAREGIVER. ESCORTED OFF UNIT BY ADAM
== END 2020-12-01 13:20 | disposition home or self-care (01) | DRG 394 ==
LOC: ER 14:06 → MED 17:55
PROVIDERS: ADMIT Nurse Practitioner Acute Care; ATTEND Nurse Practitioner Acute Care
DX: Z43.1 Encounter for attention to gastrostomy (principal); F03.91 Unspecified dementia, unspecified severity, with behavioral disturbance; R13.10 Dysphagia, unspecified; F95.2 Tourette's disorder; I10 Essential (primary) hypertension; J44.9 Chronic obstructive pulmonary disease, unspecified; Z87.891 Personal history of nicotine dependence; Z20.822 Contact with and (suspected) exposure to COVID-19
CPT/HCPCS: 36415; 71045-TC; 74018; 80048-TC; 80053-TC; 83735-TC; 84100-TC; 85025-TC; 85730-TC; 87081-TC; C9803; G0378; J1630; J1650; J2060; J3490; Q9963